=== PATIENT | male | born 1995 | race Two or more races ===

== ENCOUNTER 2020-03-17 18:42 | Emergency (ER) | payer OTHER ==
[2020-03-17] MEDS ORDERED: BUFFERED LIDOCAINE 10 ML SYRINGE SUBQ STA (19:15)
[2020-03-17] MEDS ORDERED: CEPHALEXIN 250 MG Prepack 8 CAP BOTTLE PO STA (19:15)
--- NOTE | 2020-03-17 19:17 | ED Physician Documentation ---
History of Present Illness - Stated complaint Stated Complaint: RT THUMB REDNESS / SWELLING - Chief complaint Chief Complaint: General - History obtained from History obtained from: Patient (He is painful swelling and redness on the radial side of the right thumb for the last few days. No fevers or chills. There was no specific injury.) Review of Systems Constitutional: denies: Fever, Chills Cardiac: reports: Reviewed and negative Respiratory: reports: Reviewed and negative PD PAST MEDICAL HISTORY - Present Medications Home Medications: Ambulatory Orders Medication Instructions Recorded Confirmed Cephalexin [Keflex] 500 mg PO Q6H #28 capsule 03/17/20 - Allergies Allergies/Adverse Reactions: Allergies Allergy/AdvReac Type Severity Reaction Status Date / Time No Known Drug Allergies Allergy Verified 03/17/20 18:54 PD ED PE NORMAL - Vitals Vital signs reviewed: Yes - General General: Alert and oriented X 3, No acute distress - Extremities Extremities: Other (He has a paronychia of the radial side of the nail of the right thumb. Mild surrounding cellulitis. No limited range of motion.) - Neuro Neuro: Alert and oriented X 3, Normal speech Results - Vitals Vitals: Vital Signs - 24 hr 03/17/20 18:54 Temperature 36.7 C Heart Rate 73 Respiratory 16 Rate Blood Pressure 119/72 O2 Saturation 97 Oxygen O2 Source Room air Procedures - Abscess I&D (location) Right thumb paronychia Preparation: Lidocaine 1% (Digital block with buffered lidocaine) Incision: Incised with scalpel, Purulent drainage Other: Pt tolerated well, Dressing applied, Antibiotic prescribed Departure - Departure Disposition: 01 Home, Self Care Clinical Impression: Paronychia of finger Qualifiers: Laterality: right Qualified Code(s): L03.011 - Cellulitis of right finger Condition: Good Record reviewed to determine appropriate education?: Yes Instructions: ED Fingernail Infec Prescriptions: Cephalexin [Keflex] 500 mg PO Q6H #28 capsule Comments: Follow-up with your doctor sometime next week for recheck. Return for new or worsening symptoms. You can wash it with soap and water and just keep it covered with a Band-Aid. Motrin as needed for pain.
[2020-03-17 19:56] VITALS: BP 131/91
== END 2020-03-17 19:56 | disposition home or self-care (01) ==
LOC: ED 18:42
DX: L03.011 Cellulitis of right finger (principal)
CPT/HCPCS: 26010